=== PATIENT | female | born 1975 | race Caucasian/White ===

== ENCOUNTER → 2021-04-08 17:33 | Outpatient (CLI) | payer BC, SELFPAY ==
--- NOTE | ~2021-04-08 | MM_ITS ---
EXAMINATION: MM screening katy BI w kai HISTORY: Screening mammogram TECHNIQUE: Craniocaudal and mediolateral oblique 3-D tomosynthesis images were obtained and synthetic 2-D images were generated. CAD analysis was submitted and interpreted. COMPARISON: 12/03 2017, 11/23/2016, 11/19/2015 bilateral digital screening mammogram examinations BREAST PARENCHYMAL COMPOSITION: The breasts are almost entirely fatty. FINDINGS: There is no evidence of suspicious mass, calcification, or architectural distortion to sugg est malignancy in either breast. There has been no suspicious interval change. IMPRESSION: 1. No mammographic evidence of malignancy. 2. Recommend routine screening mammography in one year. BI-RADS Category 1: Negative Reviewed, dictated and finalized at location A.
== END ==
PROVIDERS: PCP Family Medicine; Visit Provider Obstetrics & Gynecology
DX: Z12.31 Encounter for screening mammogram for malignant neoplasm of breast (principal)
CPT/HCPCS: 77063; 77067

== ENCOUNTER 2021-08-05 13:34 | Emergency (ER) | payer OTHER, SELFPAY ==
--- NOTE | ~2021-08-05 | XR_ITS ---
EXAMINATION: XR chest 1V portable 08/05/2021 14:43 INDICATION: Cough PROCEDURE: AP portable chest COMPARISON: 04/09/2012 FINDINGS: The lungs are clear. The cardiomediastinal silhouette is within normal limits. There are no pleural effusions. There is no pneumothorax suspected. IMPRESSION: 1: NO ACUTE CARDIOPULMONARY DISEASE. Reviewed, dictated and finalized at location A. [employer]
[2021-08-05 13:50] VITALS: BP 125/79; PULSE 88; RESP 16; TEMP 36.9; O2SAT 97
--- NOTE | 2021-08-05 14:01 | ED.GENADULT ---
HPI - General Adult General Chief complaint: Upper Respiratory Infection Stated complaint: heavy breathing Source: patient Mode of arrival: ambulatory Limitations: no limitations History of Present Illness HPI narrative: Mona is a 45F with a PMH of TT headache that presented to clinic with a cough. She has had a dry cough for 5 weeks. Over the last week it has been worse and she has some chills and fatigue. She has some discomfort on deep inspiration. She denies SOB, CP other than with deep inspiration, lightheadedness nausea and vomiting. Related Data Home Medications Medication Instructions Recorded Confirmed amoxicillin 500 mg tablet 500 mg PO Q12H 04/21/21 04/21/21 Allergies Allergy/AdvReac Type Severity Reaction Status Date / Time No Known Allergies Allergy Unknown Verified 04/21/21 10:36 Review of Systems Constitutional: Constitutional: Reports no additional constitutional complaints Eyes: Eyes: Reports no additional eye complaints ENT: Reports system reviewed and no additional complaints, except as documented Cardiovascular: Cardiovascular: Reports no additional cardiovascular complaints Respiratory: Respiratory: Reports as per HPI Gastrointestinal: Gastrointestinal: Reports no additional gastrointestinal complaints Genitourinary: Genitourinary: Reports no additional female genitourinary complaints Musculoskeletal: Musculoskeletal: Reports no additional musculoskeletal complaints Integumentary/Breasts: Skin/Breast: Reports system reviewed and no additional complaints, except as docu Neurologic: Reports system reviewed and no additional complaints, except as documented Psychiatric: Psychiatric: Reports no additional psychiatric complaints Endocrine: Endocrine: Reports no additional endocrine complaints Hematologic/Lymphatic: Hematologic/Lymphatic: Reports no additional hematologic/lymphatic complaints Allergic/Immunologic: Allergic/Immunologic: Reports no additional allergic/immunologic complaints [facility] Social History Social History Smoking status: Former smoker Smoking end date: 09/11/98 Alcohol intake: never Substance use: never Substance use type: does not use Gender identity (if verbalized by the patient): Female Exam Const: General: no acute distress and alert Orientation/consciousness: patient oriented x3 Limitations: No altered mental status HENMT: Head: normal to inspection Other: atrauamtic Eyes: Conjunctivae: conjunctivae normal Pupils: Equal, round and reactive pupils present Neck: Neck: normal visual inspection Chest: Chest palpation & inspection: normal inspection of the chest and no tenderness Resp: Effort & Inspection: normal respiratory effort, not labored and not tachypneic Auscultation: clear to auscultation bilaterally Cardio: Rate: regular rate Rhythm: regular rhythm Heart sounds: no murmurs Skin: General skin exam: normal color Rashes: no rashes Neuro: General: patient oriented x3, moves all extremities, no focal motor deficits and CN's II-XI intact bilaterally Extrem: General: normal to inspection Psych: Mental Status: mental status grossly normal Course Course Emergency Course: ordered labs and CXR. Labs show + Covid, slight leukopenia EXAMINATION: XR chest 1V portable 08/05/2021 14:43 INDICATION: Cough PROCEDURE: AP portable chest COMPARISON: 04/09/2012 FINDINGS: The lungs are clear. The cardiomediastinal silhouette is within normal limits. There are no pleural effusions. There is no pneumothorax suspected. IMPRESSION: 1: NO ACUTE CARDIOPULMONARY DISEASE. An order was placed for the antibody infusion to be done at the center tomorrow. Vital Signs Vital signs: Vital Signs Temperature 98.5 F 08/05/21 13:50 Pulse Rate 88 08/05/21 13:50 Respiratory Rate 16 08/05/21 13:50 Blood Pressure 125/79 08/05/21 13:50 Pulse Oximetry 97
[2021-08-05 14:09] LABS: Hematocrit 41.5 % (35.0-49.0); Hemoglobin 13.6 g/dL (12.0-15.0); Mean Corpuscular HGB Conc 32.8 g/dL (32.0-36.0); Mean Corpuscular Hemoglobin 31.3 pg (27.0-31.0); Mean Corpuscular Volume 95.4 fL (78.0-102.0); Mean Platelet Volume 10.5 fl (9.2-11.8); Platelet Count Result 134 K/mm3 (150-420); Red Blood Count 4.35 M/mm3 (4.20-5.40); Red Cell Distribution Width 13.3 % (11.6-14.4); White Blood Count 3.6 K/mm3 (4.8-10.8)
[2021-08-05 14:18] LABS: Anion Gap 10 mmol/L (8-16); Blood Urea Nitrogen 10 mg/dL (7-18); Calcium 8.7 mg/dL (8.5-10.1); Carbon Dioxide 26 mmol/L (21-32); Chloride 104 mmol/L (98-108); Estimated CRCL calculation 65 ml/min; Estimated Glomerular Filt Rate 55; Glucose 115 mg/dL (70-99); Osmolality Calculated 290 mOsm/kg (285-295); Potassium 3.7 mmol/L (3.5-5.1); Sodium 140 mmol/L (136-145)
[2021-08-05 14:28] LABS: SARS-CoV-2 Ag Positive (Negative)
[2021-08-05 14:29] LABS: Band Neutrophils Percent 0 % (0-6); Basophils Absolute Manual 0.07 K/mm3 (0-0.1); Basophils Percent Manual 2 % (0-1); Eosinophils Absolute Manual 0.03 K/mm3 (0.02-0.5); Eosinophils Percent Manual 1 % (1-6); Lymphocytes Absolute Manual 0.57 K/mm3 (1.1-4.5); Lymphocytes Percent Manual 16 % (18-44); Monocytes Absolute Manual 0.32 K/mm3 (0.1-0.90); Monocytes Percent Manual 9 % (3-9); Neutrophils Absolute Manual 2.59 K/mm3 (1.7-7.2); Neutrophils Percent Manual 72 % (46-73); Total Cells Counted 100
[2021-08-05 15:11] VITALS: BP 127/76; PULSE 84; RESP 18; O2SAT 95
== END 2021-08-05 15:17 | disposition home or self-care (01) ==
PROVIDERS: Emergency Provider Family Medicine; PCP Family Medicine
DX: U07.1 COVID-19 (principal)
CPT/HCPCS: 36415; 71045; 80048; 85025; 87426; 99282; 99283; C9803

== ENCOUNTER 2021-08-09 09:11 | Outpatient (RCR) | payer OTHER, SELFPAY ==
[2021-08-09] MEDS: ACETAMINOPHEN 325 MG TABLET 650 MG PO (12:11)
[2021-08-09] MEDS: diphenhydrAMINE HCl CAP 25 MG CAPSULE PO (12:11)
[2021-08-09] MEDS: FAMOTIDINE 20 MG TABLET PO (12:11)
[2021-08-09 12:20] VITALS: BP 109/43; PULSE 72; RESP 16; TEMP 37.4; O2SAT 98
[2021-08-09 13:39] VITALS: BP 108/52
--- NOTE | 2021-08-10 13:13 | PC.NURSE ---
Called Ms Soto, and she stated she is not feeling better today, but has rested more. She will call her PCP or go to the ER if she is not doing better in a few days or worsens. No other questions at this time.
== END 2021-08-09 16:09 ==
LOC: AMCINF 09:11
PROVIDERS: PCP Family Medicine; Visit Provider Internal Medicine Hematology & Oncology
DX: U07.1 COVID-19 (principal)
CPT/HCPCS: A9270; M0245; Q0245

== ENCOUNTER 2021-12-21 14:44 | Outpatient (CLI) | payer OTHER, SELFPAY ==
[2021-12-21 15:31] LABS: SARS-CoV-2 RNA PCR Negative (Negative)
== END 2021-12-21 14:45 | disposition home or self-care (01) ==
LOC: CHSLAB 14:47
PROVIDERS: PCP Family Medicine; Visit Provider Family Medicine
DX: Z20.822 Contact with and (suspected) exposure to COVID-19 (principal)
CPT/HCPCS: C9803; U0003; U0005

== ENCOUNTER → 2022-06-09 14:07 | Outpatient (CLI) | payer OTHER, SELFPAY ==
--- NOTE | ~2022-06-09 | MM_ITS ---
EXAMINATION: MM screening katy BI w kai HISTORY: Screening mammogram TECHNIQUE: Craniocaudal and mediolateral oblique 3-D tomosynthesis images were obtained and synthetic 2-D images were generated. CAD analysis was submitted and interpreted. COMPARISON: 04/08/2021, 11/28/2017, 11/23/2016 bilateral screening mammogram examinations BREAST PARENCHYMAL COMPOSITION: The breasts are almost entirely fatty. FINDINGS: There is no evidence of suspicious mass, calcification, or architectural distortion to sugg est malignancy in either breast. There has been no suspicious interval change. IMPRESSION: 1. No mammographic evidence of malignancy. 2. Recommend routine screening mammography in one year. BI-RADS Category 1: Negative Reviewed, dictated and finalized at location A.
== END ==
PROVIDERS: PCP Family Medicine; Visit Provider Obstetrics & Gynecology
DX: Z12.31 Encounter for screening mammogram for malignant neoplasm of breast (principal)
CPT/HCPCS: 77063; 77067

== ENCOUNTER 2023-02-28 14:56 | Outpatient (CLI) | payer OTHER, SELFPAY | END 2023-02-28 14:57 | disposition home or self-care (01) | PROVIDERS: PCP Family Medicine; Visit Provider Specialist | DX: D22.5 Melanocytic nevi of trunk (principal) | CPT/HCPCS: 88305 ==

== ENCOUNTER 2023-05-27 12:46 | Emergency (ER) | payer OTHER, SELFPAY ==
--- NOTE | 2023-05-27 13:13 | ED.FEMALEGU ---
HPI - Female Genitourinary General Chief complaint: Urogenital-Female Stated complaint: Uti symptoms Time Seen by Provider: 05/27/23 13:13 Source: patient Mode of arrival: ambulatory Limitations: no limitations History of Present Illness HPI Narrative: 47-year-old female presents with complaint of urinary frequency, dysuria, pelvic pressure, hematuria starting yesterday. Reports chills starting this morning. Afebrile. Denies nausea vomiting. No back pain. Started azo this morning. All systems reviewed and negative except as noted above. Related Data Home Medications Medication Instructions Recorded Confirmed amoxicillin 500 mg tablet 500 mg PO DAILY 05/27/23 05/27/23 calcium 500 mg tablet 100 mg PO DAILY 05/27/23 05/27/23 multivitamin 1 tablet PO DAILY 05/27/23 05/27/23 Allergies Allergy/AdvReac Type Severity Reaction Status Date / Time No Known Allergies Allergy Unknown Verified 05/27/23 13:13 Review of Systems Review of Systems: CONSTITUTIONAL: Denies fever, chills, or sweats. EYES: Denies visual changes, redness, or discharge. ENT: Denies rhinorrhea, congestion, sore throat, or otalgia. CARDIOVASCULAR: Denies chest pain, palpitations, or edema. RESPIRATORY: Denies cough or dyspnea. GASTROINTESTINAL: Denies abdominal pain, nausea, vomiting, or diarrhea. GENITOURINARY: Reports dysuria, frequency, pelvic pressure, hematuria. SKIN: Denies rash or itching. MUSCULOSKELETAL: Denies back pain, joint pain, or myalgia. NEUROLOGIC: Denies headache, numbness, or weakness. PSYCHIATRIC: Denies anxiety or depression. All other systems reviewed are negative, except as documented in HPI. [facility] Social History Social History Smoking packs per day: 0.5 Smoking cigarettes per day: 10.0 Years smoked: 4 Smoking pack-years: 2.00 Smoking status: Never smoker Tobacco type: cigarettes Smoking end date: 07/18/91 Alcohol intake: never Substance use: never Substance use type: does not use Gender identity (if verbalized by the patient): Female Spiritual care concerns: No Comments At time of signature, agree with nursing past medical, surgical, social and family history. There is no relevant family history pertinent to the presenting complaint. Exam Narrative: GENERAL: This is a well-nourished, well-developed patient, in no apparent distress. HEAD: normocephalic, atraumatic. EYES: PERRL. Sclera clear/white. Vision is grossly intact. EARS: External ears normal NOSE: External nose normal NECK: Neck supple, non-tender without lymphadenopathy, masses or thyromegaly. CARDIOVASCULAR: Regular rate and rhythm without murmurs, gallops, or rubs. RESPIRATORY: Clear to auscultation. Breath sounds equal bilaterally. No wheezes, rales, or rhonchi. SKIN: warm, Dry, intact with no suspicious lesions or rash, good texture and turgor. NEURO: awake, alert, and oriented to person, place and time. There were no obvious focal neurologic abnormalities. EXTREMITIES: No joint tenderness, effusion, or edema noted. Course Course Level of Care: Express Care Visit Vital Signs Vital signs: Vital Signs Temperature 36.2 C L 05/27/23 13:20 Pulse Rate 94 05/27/23 13:20 Respiratory Rate 16 05/27/23 13:20 Blood Pressure 132/78 05/27/23 13:20 Pulse Oximetry 98 05/27/23 13:20 Temperature 36.2 C L 05/27/23 13:20 Pulse Rate 94 05/27/23 13:20 Respiratory Rate 16 05/27/23 13:20 Blood Pressure 132/78 05/27/23 13:20 Pulse Oximetry 98 05/27/23 13:20 Reviewed MDM - Female Genitourinary MDM Narrative Medical decision making narrative: Patient is aware of diagnosis, understands and agrees to treatment plan. Anticipatory guidance given. Patient agrees to follow-up as directed and is aware of reasons to seek care at the emergency department. Portions of this record may have been created with voice recognition software [employer]
[2023-05-27 13:20] VITALS: BP 132/78; PULSE 94; RESP 16; TEMP 36.2; O2SAT 98
== END 2023-05-27 13:34 | disposition home or self-care (01) ==
PROVIDERS: Emergency Provider Nurse Practitioner Family; PCP Obstetrics & Gynecology
DX: N39.0 Urinary tract infection, site not specified (principal); B96.20 Unspecified Escherichia coli [E. coli] as the cause of diseases classified elsewhere; Z87.891 Personal history of nicotine dependence
CPT/HCPCS: 81003; 87077; 87086; 87186; 99213; G0463

== ENCOUNTER → 2023-07-24 07:19 | Outpatient (CLI) | payer OTHER, SELFPAY ==
--- NOTE | ~2023-07-24 | MM_ITS ---
EXAMINATION: MM screening [facility] BI w kai HISTORY: Screening mammogram TECHNIQUE: Craniocaudal and mediolateral oblique 3-D tomosynthesis images were obtained and synthetic 2-D images were generated. CAD analysis was submitted and interpreted. COMPARISON: 06/09/2022, 04/08/2021, 11/28/2017 BREAST PARENCHYMAL COMPOSITION: The breasts are almost entirely fatty. FINDINGS: No suspicious mass, calcification, or architectural distortion are identified in either jorge alberto ast to suggest malignancy. There has been no suspicious interval change. IMPRESSION: 1. No mammographic evidence of malignancy. 2. Recommend routine screening mammography in one year. BI-RADS Category 1: Negative Reviewed, dictated and finalized at location A. [employer]
== END ==
PROVIDERS: PCP Family Medicine; Visit Provider Obstetrics & Gynecology
DX: Z12.31 Encounter for screening mammogram for malignant neoplasm of breast (principal)
CPT/HCPCS: 77063; 77067

== ENCOUNTER 2023-08-25 03:24 | Day surgery (SDC) | payer OTHER, SELFPAY ==
[2023-08-09 14:01] VITALS: BMI 40.1
--- NOTE | 2023-08-23 11:28 | SUR.PREOP ---
Patient called regarding upcoming procedure. Reviewed preop instructions, appointment times, and procedure prep.
[2023-08-25 07:41] VITALS: BP 120/61; PULSE 71; RESP 18; TEMP 36.6; O2SAT 100; BMI 39.8
--- NOTE | 2023-08-25 07:45 | P.PNAN_ITS ---
Anes - Initial Pre Proc Eval Procedure: Operation Date: 08/25/23 08:30 Proposed Procedures p Screening Colonoscopy - Sammy Martinez MD Date/Time: 08/25/23 07:45 Surgeon: Sammy Martinez MD Pre Op Diagnosis: neoplasm screening Patient Data Age: 47 Gender: F Height: 1.63 m Weight: 105.3 kg Last Vital Signs Temp 36.6 C 08/25/23 07:41 Pulse 71 08/25/23 07:41 Resp 18 08/25/23 07:41 BP 120/61 08/25/23 07:41 Pulse Ox 100 08/25/23 07:41 O2 Del Method Room Air 08/25/23 07:41 Allergies Allergy/AdvReac Type Severity Reaction Status Date / Time No Known Allergies Allergy Unknown Verified 08/25/23 07:39 Home Medications Medication Instructions Recorded Confirmed Type calcium 500 mg tablet 100 mg PO DAILY 05/27/23 08/09/23 History multivitamin 1 tablet PO DAILY 05/27/23 08/09/23 History ascorbic acid (vitamin C) 500 mg 500 mg PO DAILY 08/09/23 08/09/23 History capsule cranberry 1,000 mg capsule 1,000 mg PO BID 08/09/23 08/09/23 History Patient hx anesthesia problems: none Family hx anesthesia problems: none Results Review: All pre-operative results and documents have been reviewed as part of the pre- operative evaluation. COUNTS INCLUDE 234 BEDS AT THE [facility] Past Medical History Medical History (Updated 08/25/23 @ 07:46 by Jeremias Tracy MD) Morbid obesity Snoring Surgical History Surgical History (Updated 08/25/23 @ 07:46 by Jeremias Tracy MD) H/O: hysterectomy History of section Social History Social History Smoking packs per day: 0.5 Smoking cigarettes per day: 10.0 Years smoked: 4 Smoking pack-years: 2.00 Smoking status: Former smoker Tobacco type: cigarettes Smoking end date: 07/18/91 Alcohol intake: never Substance use: never Substance use type: does not use Living arrangements: with family Gender identity (if verbalized by the patient): Female Spiritual care concerns: No Anes - Eval Final PreProcedure Day of Procedure 08/25/23 07:45 Patient weight: morbidly obese Heart: regular rate and rhythm Lungs: clear to auscultation Airway: Mallampati scale class II Neurological: alert and oriented Last oral intake: >/= 8 hours ASA classification: III Emergent: no Anesthetic plan: proceed Anesthesia type and monitoring: general GIVS and standard monitoring Results Review: All pre-operative results and documents have been reviewed as part of the pre- operative evaluation. Informed Consent: The patient's anesthetic plan and its attendant risks and benefits were discussed with the patient/family/POA. Questions were solicited and answers provided to the satisfaction of the patient/family/POA.
[2023-08-25] MEDS: LACTATED RINGERS 1,000 ML 150 ML IV CONT (07:52)
--- NOTE | 2023-08-25 08:32 | PM.HPGS ---
History of Present Illness History of Present Illness Consent: Risks, benefits, and alternatives have been discussed and questions answered. Patient agrees to proceed with procedure. Chief complaint: neoplasm screening Narrative: Mona Soto is a 47 year old female Presents for screening colonoscopy. Patient's current weight appetite and bowel movements are normal. Patient denies abdominal pain. She has had no bleeding. Family history is noncontributory. Review of Systems Review of Systems: Review of systems noncontributory. [facility] Past Medical History Medical History (Updated 08/25/23 @ 08:33 by Sammy Martinez MD) Morbid obesity Snoring Surgical History Surgical History (Updated 08/25/23 @ 07:46 by Jeremias Tracy MD) H/O: hysterectomy History of section Social History Social History Smoking packs per day: 0.5 Smoking cigarettes per day: 10.0 Years smoked: 4 Smoking pack-years: 2.00 Smoking status: Former smoker Tobacco type: cigarettes Smoking end date: 07/18/91 Alcohol intake: never Substance use: never Substance use type: does not use Living arrangements: with family Gender identity (if verbalized by the patient): Female Spiritual care concerns: No Meds Home Medications and Allergies Home Medications Medication Instructions Recorded Confirmed Type calcium 500 mg tablet 100 mg PO DAILY 05/27/23 08/25/23 History multivitamin 1 tablet PO DAILY 05/27/23 08/25/23 History ascorbic acid (vitamin C) 500 mg 500 mg PO DAILY 08/09/23 08/25/23 History capsule cranberry 1,000 mg capsule 1,000 mg PO BID 08/09/23 08/25/23 History Allergies Allergy/AdvReac Type Severity Reaction Status Date / Time No Known Allergies Allergy Unknown Verified 08/25/23 07:39 Vital Signs Vital Signs - 24 hr 08/25/23 07:41 Temperature 97.9 F Pulse Rate 71 Respiratory Rate 18 Blood Pressure 120/61 Pulse Oximetry 100 Oxygen Delivery Room Air Exam Narrative: Physical exam reveals patient to be alert. Vital signs stable. HEENT exam is unremarkable. Patient is anicteric. Lungs are clear to auscultation and percussion. Heart is without murmur or extra sounds. Abdomen bowel sounds are present soft nontender with no organomegaly. Digital external rectal exam normal. Assessment and Plan Assessment and plan (1) Encounter for screening colonoscopy: Code(s): Z12.11 - Encounter for screening for malignant neoplasm of colon Status: Acute Assessment and Plan: Patient presents today for screening colonoscopy. She appears to be at average risk for colon polyps. Further recommendations may be given after endoscopy.
[2023-08-25 09:09] VITALS: BP 96/52; PULSE 78; RESP 24; O2SAT 99
[2023-08-25 09:19] VITALS: BP 94/56; PULSE 67; RESP 18; O2SAT 100
[2023-08-25 09:29] VITALS: BP 115/45; PULSE 67; RESP 17; O2SAT 99
== END 2023-08-25 09:40 | disposition home or self-care (01) ==
PROVIDERS: PCP Family Medicine; Visit Provider Internal Medicine Gastroenterology
PROC: 0DJD8ZZ Inspection of Lower Intestinal Tract, Via Natural or Artificial Opening Endoscopic (ICD-10-PCS; CPT 45378; principal; 2023-08-25 08:30)
DX: Z12.11 Encounter for screening for malignant neoplasm of colon (principal); E66.01 Morbid (severe) obesity due to excess calories; Z68.39 Body mass index [BMI] 39.0-39.9, adult; Z79.899 Other long term (current) drug therapy; Z87.891 Personal history of nicotine dependence
CPT/HCPCS: 45378; J2001; J2371; J2704; J7120

== ENCOUNTER 2024-12-17 09:35 | Outpatient (CLI) | payer OTHER, SELFPAY | END 2024-12-17 09:36 | disposition home or self-care (01) | LOC: MICIMG 09:39 | PROVIDERS: PCP Family Medicine; Visit Provider Obstetrics & Gynecology | DX: M79.671 Pain in right foot (principal); M25.571 Pain in right ankle and joints of right foot | CPT/HCPCS: 73610; 73630 ==